=== PATIENT | female | born 1955 ===

== ENCOUNTER 2025-01-02 11:44 | Observation (INO) | payer OTHER ==
[~2025-01-02] VITALS: Ht 162.6 cm; Wt 54.7 kg
--- NOTE | 2025-01-02 12:05 | ERN ---
General Chief Complaint: Nausea,Vomiting,Diarrhea Stated Complaint: NAUSEA Time Seen by MD: 11:49 History of Present Illness Initial Comments 69-year-old female brought in by EMS for vomiting and weakness. According to family and the patient, she has been in her normal state of health. This morning around 7:00 a.m., proximally 5 hours prior to arrival, she has been feeling weak she began vomiting. She has had 7+ episodes of non biliary nonbloody vomit. No diarrhea. She was report generalized weakness. EMS found her to be tachycardic heart rate 110, blood pressure and other vital signs are all stable. Blood glucose 203. Patient was given 4 mg of Zofran IV by the paramedics prior to arrival. Medical history: Hypothyroidism hypertension Surgical history: Hysterectomy Allergies: Coded Allergies: No Known Drug Allergies (Unverified Allergy, Unknown, 01/02/25) Home Meds Reported Medications Atorvastatin Calcium (LIPITOR) 20 Mg Tab, 20 MG PO DAILY, TAB 01/02/25 Famotidine (Famotidine) 40 Mg Tablet, 40 MG PO DAILY, TAB 01/02/25 Celecoxib (Celebrex 200Mg Cap) 200 Mg Cap, 200 MG PO DAILY, CAP 01/02/25 Levothyroxine Sodium (Levothyroxine) 88 Mcg Capsule, 88 MCG PO DAILY, CAP 01/02/25 Past Medical History Past Medical History: High Cholesterol, Hypertension, Hypothyroid Past Surgical History: None ROS Dictation CONSTITUTIONAL: Generalized weakness and fatigue EENT: No eye pain, no blurred vision, no tearing, no double vision, no ear pain, no ear discharge, no nose pain, no nasal congestion, no throat pain, no throat swelling, no mouth pain. RESPIRATORY: No cough, no orthopnea, no SOB, no stridor, no wheezing. CARDIOVASCULAR: No chest pain, no edema, no palpitations, no syncope. GASTROINTESTINAL/ABDOMINAL: Nausea and vomiting GENITOURINARY: No abnormal discharge, no dysuria, no frequent urination, no hematuria. No complaints of pain in the genitals. MUSCULOSKELETAL: No back pain, no gout, no joint pain, no joint swelling, no muscle pain, no muscle stiffness, no neck pain. INTEGUMENTARY: No change in color, no change in hair/nails, no dryness, no lesion, no lumps, no rash. NEUROLOGICAL/PSYCH: No anxiety, not depressed, no emotional problem, no headache, no numbness, no pre-existing deficit, no history of seizures, no tremors, no weakness. HEMATOLOGIC/LYMPHATIC: Not anemic, no history of blood clots, no apparent bleeding, no bruising, glands not swollen. All Systems Negative, Except as Noted. Physical Exam Physical Exam Dictation VITAL SIGNS: Reviewed. GENERAL APPEARANCE: Alert, oriented x3, week HEAD AND FACE: Non-traumatic. EYES: PERRL, pink conjunctivas, eyelid no trauma, anterior chamber clear. EARS: Pinnas intact and no signs of trauma or erythema. Ear canals clear and no discharge. TMs no erythema. NOSE: No discharge, no bleeding. OROPHARYNX: Mouth normal, teeth no caries, tongue pink. Pharynx clear, no erythema. Tonsils no exudates, no abscesses noted. Mucous membrane moist. NECK: Supple, non-tender, no thyromegaly, no masses, no JVD, no bruits. BREAST: Deferred. CHEST: No tenderness, no crepitus, no paradoxical movement, no retractions. LUNGS: Clear, well-ventilated, symmetric, no rales, no wheezing, no rhonchi, no stridor, good breath sounds bilaterally. HEART: Regular rate, regular rhythm, no murmur, no gallops. VASCULAR: No peripheral edema. ABDOMEN: Soft, positive bowel sounds, nondistended, no guarding, nontender, no rebound, no masses no hepatomegaly, no splenomegaly, no Cortez's sign, no hernias. RECTAL: Deferred. GENITAL: Deferred. NEUROLOGICAL: Normal speech, gross motor function intact, gross sensory f unction intact. MUSCULOSKELETAL: Neck nontender, full range of motion, back nontender, full range of motion. EXTREMITIES: Nontender, full range of motion. SKIN: Color pink, dry, no turgor, no rash, no lacerations, no abrasions, no contusions. LYMPHATICS: Deferred. Results Laboratory and Microbiology Lab and Micro Result Laboratory Tests Test 01/02/25 12:00 01/02/25 12:20 01/02/25 14:30 Total Creatine Kinase 100 U/L (21-232) C-Reactive Protein, Quantitative 0.60 mg/L (0.5-3.0) Procalcitonin < 0.05 ng/mL (0.05-0.5) L < 0.05 ng/mL (0.05-0.5) L Thyroid Stimulating Hormone (TSH) 1.36 uIU/mL (0.36-3.74) White Blood Count 14.3 K/uL (4.8-10.8) H Red Blood Count 4.80 MIL/uL (4.00-5.50) Hemoglobin 14.8 g/dL (12.0-16.0) Hematocrit 41.8 % (36-48) Mean Corpuscular Volume 87.1 fL (79-99) Mean Corpuscular Hemoglobin 30.8 pg (27.0-33.0) Mean Corpuscular Hemoglobin Concent 35.4 g/dL (32.0-36.0) Red Cell Distribution Width 12.2 % (11.0-15.5) Platelet Count 267 K/uL (130-400) Mean Platelet Volume 9.0 fL (7.5-10.5) Immature Granulocyte % (Auto) 0.4 % (0-1) Neutrophils (%) (Auto) 92.2 % (40.0-77.0) H Lymphocytes (%) (Auto) 5.1 % (21.0-51.0) L Monocytes (%) (Auto) 2.2 % (3.0-13.0) L Eosinophils (%) (Auto) 0.0 % (0.0-8.0) Basophils (%) (Auto) 0.1 % (0.0-5.0) Neutrophils # (Auto) 13.1 K/uL (1.8-7.7) H Lymphocytes # (Auto) 0.7 K/uL (1.0-4.8) L Monocytes # (Auto) 0.3 K/uL (0.1-1.0) Eosinophils # (Auto) 0.00 K/uL (0.00-0.70) Basophils # (Auto) 0.02 K/uL (0.00-0.20) Absolute Immature Granulocyte (auto 0.05 K/uL (0-1) Nucleated Red Blood Cells 0.0 % (0.0-0.19) White Cell Morphology Comment See comments Sodium Level 142 mmol/L (136-145) Potassium Level 3.7 mmol/L (3.5-5.1) Chloride Level 105 mmol/L (101-111) Carbon Dioxide Level 29 mmol/L (21-32) Blood Urea Nitrogen 15 mg/dL (7-18) Creatinine 0.9 mg/dL (0.5-1.0) Glomerular Filtration Rate Calc 69 mL/min (>90) Random Glucose 144 mg/dL (70-105) H Lactic Acid Level 2.8 mmol/L (0.8-2.5) H Total Calcium 9.7 mg/dL (8.5-10.1) Total Bilirubin 0.5 mg/dL (0.2-1.0) Direct Bilirubin 0.1 mg/dL (0.0-0.3) Aspartate Amino Transf (AST/SGOT) 20 U/L (10-37) Alanine Aminotransferase (ALT/SGPT) 27 U/L (12-78) Alkaline Phosphatase 79 U/L (50-136) Troponin I High Sensitivity 5 ng/L (4-50) Total Protein 7.3 g/dL (6.0-8.3) Albumin 4.0 g/dL (3.5-5.0) Lipase 45 U/L (16-77) Influenza Type A Antigen Negative For Type A Influenza Type B Antigen Negative For Type B SARS-CoV-2 Antigen (Rapid) PRESUMPTIVE NEGATIVE Group A Streptococcus Rapid POSITIVE (NEGATIVE) *A MDM CC: Generalized weakness and vomiting. Historian: Patient Comorbidities: Hypertension, hypothyroidism Limitations by social determinants of health: None Differential diagnosis: Gastroenteritis, dehydration, electrolyte abnormality, ACS, SIRS, sepsis, other. EKG (independently interpreted by me ): Sinus tachycardia rate of 105 normal axis good R-wave progression intervals are stable. No STEMI. Labs (independently ordered and interpreted by me): Leukocytosis 14.3 K, left shift 92% neutrophils. No bands. Metabolic panel shows stable electrolytes. The glucose stable. Lactic acid is 2.8 and elevated. Liver enzymes are all normal, troponin normal, CK normal, CRP normal. Lipase normal. Procalcitonin normal. Thyroid normal. Flu SARS negative. CT head without contrast (independently interpreted by me ): No acute bleeding. Chest x-ray ( independently interpreted by me ): No cardiomegaly, focal infiltrates, pleural effusions. CT abdomen and pelvis without contrast (independently interpreted by me ): No acute abnormalities. No free air. No surgical pathology. No signs of gastritis or enteritis. No signs of obstruction. Patient received 2 L lactated Ringer's, 4 mg of IV Zofran here in the ER. Patient initially had stable vital signs, on re-evaluation she did spike a fever. This gives her fever, tachycardia, and an elevated lactic acid consistent with sepsis. She received another L of fluids. She had over 30 cc/kg of fluids, she also received a dose of IV Rocephin. On sepsis focused re-evaluation after the fluids and the Rocephin, patient has stable perfusion with cap refill less than 2 seconds. Stable vital signs. Plan: We will admit for dehydration, sepsis, vomiting. Patient agrees with the plan. Consultation: Hospitalist. ED Course Orders Procedure Category Date Status Time Cbc With Differential LAB 01/02/25 Complete 11:56 Comprehensive LAB 01/02/25 Complete Metabolic Panel 11:56 Troponin I High LAB 01/02/25 Complete Sensitivity 11:56 Urinalysis Profile LAB 01/02/25 Logged 11:56 12 Lead Ekg Tracing- EKG 01/02/25 Complete Technical 11:56 Lactated Ringers PHA 01/02/25 Complete 1000ml (Lactated 12:00 Ondansetron 4mg Inj PHA 01/02/25 Complete (Zofran 4mg Inj) 12:00 Ct Abdomen/Pelvis W/O CT 01/02/25 Resulted Contrast 11:56 Chest 1vw RAD 01/02/25 Resulted 11:56 Lipase LAB 01/02/25 Complete 11:56 Basic Metabolic Panel LAB 01/02/25 Complete 11:56 Lactic Acid LAB 01/02/25 Complete 11:56 Blood Cult RICKY 01/02/25 In Process 11:56 Hepatic Function Panel LAB 01/02/25 Complete 11:56 Procalcitonin LAB 01/02/25 Complete 11:56 Ct Head/Brain W/O CT 01/02/25 Resulted Contrast 11:56 Ceftriaxone 1g Vial PHA 01/02/25 Complete (Rocephine 1g Inj) 14:30 Covid19 (Sars Antigen LAB 01/02/25 Complete Rapid) 14:25 Influenza Type A & B, LAB 01/02/25 Complete Rapid 14:25 Acetaminophen 500mg PHA 01/02/25 Complete Tab (Tylenol 500mg T 14:25 *Nursing CPOE 01/02/25 Transmitted Communication: 14:49 Lactated Ringers PHA 01/02/25 Complete 1000ml (Lactated 15:00 Rapid (Group A Strep) LAB 01/02/25 Complete 14:25 Vital Signs(Adult CPOE 01/02/25 Transmitted Hospitalist) 15:10 Nurse To Enter Home CPOE 01/02/25 Transmitted Medication 15:10 Admit Orders ADM 01/02/25 Transmitted 15:10 Telemetry Monitoring CPOE 01/02/25 Transmitted 15:10 Gi Soft/[place] Diet DIET 01/02/25 Transmitted Dinner Enoxaparin Sodium 30 PHA 01/03/25 In Process Mg/0.3 Ml (Lovenox) 09:00 Famotidine 20mg Vial PHA 01/02/25 In Process (Pepcid 20mg Vial) 21:00 *Nursing CPOE 01/02/25 Transmitted Communication: 15:10 Zosyn 3.375gm+Ns 50ml PHA 01/02/25 In Process (Zosyn 3.375gm+Ns 15:30 0.9%Nacl 50ml (Ns PHA 01/02/25 In Process 50ml) 15:30 0.9%Nacl 1000ml (Ns PHA 01/02/25 In Process 1000ml) 15:30 Thyroid Stimulating LAB 01/02/25 Complete Hormone 15:10 Hemoglobin A1c LAB 01/02/25 In Process 15:10 Procalcitonin LAB 01/02/25 Complete 15:10 Crp Quantitative LAB 01/02/25 Complete 15:10 Acetaminophen 500mg PHA 01/02/25 In Process Tab (Tylenol 500mg T 15:30 Ondansetron 4mg Inj PHA 01/02/25 In Process (Zofran 4mg Inj) 15:30 Infectious Disease CONPHYSVC 01/02/25 Transmitted Consult 15:10 Us Abdominal Ruq\Ltd US 01/02/25 Logged 15:10 Doxycycline 100mg+Ns PHA 01/02/25 Complete 250ml (Doxycycline 15:30 Creatine Kinase, Total LAB 01/02/25 Complete 12:00 Lactic Acid (Removed) LAB 01/02/25 Logged 15:59 Current Medications Medications (Trade) Dose Ordered Sig/William Route PRN Reason Start Time Stop Time Status Last Admin Dose Admin Acetaminophen (TYLenol 500MG TAB) 500 mg Q6H PRN PO MILD PAIN (1-3) 01/02/25 15:30 02/01/25 15:29 Acetaminophen (TYLenol 500MG TAB) 500 mg STK-MED ONCE .ROUTE 01/02/25 14:25 01/02/25 14:25 DC 01/02/25 14:43 Ceftriaxone Sodium (ROCEphine 1G INJ) 1 gm ONCE ONCE IVPB 01/02/25 14:30 01/02/25 14:31 DC 01/02/25 14:44 Doxycycline Hyclate 250 ml @ 125 mls/hr Q12H IV 01/02/25 15:30 01/02/25 15:31 DC Enoxaparin Sodium (Lovenox) 30 mg DAILY SQ 01/03/25 09:00 02/02/25 08:59 Famotidine (Pepcid 20mg Vial) 20 mg BID IV 01/02/25 21:00 02/01/25 20:59 Lactated Ringer's 1,000 ml @ 0 mls/hr ONCE ONCE IV 01/02/25 12:00 01/02/25 12:01 DC 01/02/25 12:32 Lactated Ringer's (Lactated Ringers 1000ml) 1,000 ml ONCE ONCE IV 01/02/25 15:00 01/02/25 15:03 DC 01/02/25 15:53 Ondansetron HCl (zoFRAN 4MG INJ) 4 mg ONCE ONCE IVP 01/02/25 12:00 01/02/25 12:01 DC 01/02/25 12:32 Ondansetron HCl (zoFRAN 4MG INJ) 4 mg Q6H PRN IVP NAUSEA/VOMITING 01/02/25 15:30 02/01/25 15:29 Piperacillin Sod/ Tazobactam Sod (Zosyn 3.375gm+NS 50ml) 3.375 gm Q8H IVPB 01/02/25 15:30 01/12/25 15:29 Sodium Chloride 1,000 ml @ 125 mls/hr Q8H IV 01/02/25 15:30 02/01/25 15:29 Sodium Chloride (NS 50ml) 50 ml AD IV 01/02/25 15:30 02/01/25 15:29 Vital Signs Date Time Temp Pulse Resp B/P (MAP) Pulse Ox O2 Delivery O2 Flow Rate FiO2 01/02/25 14:43 102.6 01/02/25 14:25 102.6 110 16 149/85 96 Room Air* 0 21 01/02/25 11:49 98.2 105 16 151/88 96 Room Air 0 01/02/25 11:49 98.2 105 16 151/88 96 Room Air* 0 21 DX & DISP Disposition: Inpatient Departure Impression: Primary Impression: Sepsis Additional Impression: Vomiting Critical Time: 30 minutes (Critical Care Procedure NoteAuthorized and Performed by: meTotal critical care time: Approximately 36 minutesDue to a high probability of clinically significant, life threatening deterioration, the patient required my highest level of preparedness to intervene emergently and I personally spent this critical care time directly and personally managing the patient. This critical care time included obtaining a history; examining the patient; pulse oximetry; ordering and review of studies; arranging urgent treatment with development of a management plan; evaluation of patient's response to treatment; frequent reassessment; and, discussions with other providers.This critical care time was performed to assess and manage the high probability of imminent, life-threatening deterioration that could result in multi-organ failure. It was exclusive of separately billable procedures and treating other patients and teaching time.Please see MDM section and the rest of the note for further information on patient assessment and treatment.) Condition: Stable MERCEDES MAY DO Jan 02, 2025 12:05
[2025-01-02] MEDS: LACTATED RINGERS 1000ML 1,000 ML IV ONE (12:32)
[2025-01-02] MEDS: ondanSETRON 4MG INJ IVP ONE (12:32)
--- NOTE | 2025-01-02 12:47 | EKG ---
[facility] Test Date: 2025-01-02 Test Time: 12:24:11 Pat Name: RUKHSANA PIERCE Department: ED Room: 226 Gender: F Cloth Tearer: [id number] : 1955 Requested By: MERCEDES MAY Order Number: [id number] Reading MD: Neena Lugo Measurements Intervals [place] Rate: 105 P: 68 ID: [id number] QRS: 84 QRSD: 91 T: 69 QT: 343 QTc: 454 Interpretive Statements Sinus tachycardia No previous ECG available for comparison Electronically Signed On 01-03-2025 08:45:48 COPYRIGHT EXPERT by Neena Lugo Please click the below link to view image of tracing.
[2025-01-02 13:00] LABS: BASOPHILS # (AUTO) 0.02 K/uL (0.00-0.20); BASOPHILS % (AUTO) 0.1 % (0.0-5.0); HEMATOCRIT 41.8 % (36-48); IMMATURE GRANULOCYTE ABSOLUTE 0.05 K/uL (0-1); LYMPHOCYTES # (AUTO) 0.7 K/uL (1.0-4.8); LYMPHOCYTES % (AUTO) 5.1 % (21.0-51.0); MEAN CORPUSCULAR HEMOGLOBIN 30.8 pg (27.0-33.0); MEAN CORPUSCULAR HGB CONC 35.4 g/dL (32.0-36.0); MEAN CORPUSCULAR VOLUME 87.1 fL (79-99); MONOCYTES # (AUTO) 0.3 K/uL (0.1-1.0); MONOCYTES % (AUTO) 2.2 % (3.0-13.0); NEUTROPHILS # (AUTO) 13.1 K/uL (1.8-7.7); NEUTROPHILS % (AUTO) 92.2 % (40.0-77.0); PLATELET COUNT (AUTO) 267 K/uL (130-400); RED CELL DISTRIBUTION WIDTH 12.2 % (11.0-15.5); WHITE BLOOD COUNT (AUTO) 14.3 K/uL (4.8-10.8)
--- NOTE | 2025-01-02 13:00 | HMCIMG ---
CHEST 1VW HISTORY: Vomiting COMPARISON: None FINDINGS: A frontal projection of the chest was obtained. Prominent interstitial markings are seen with possible superimposed infiltrates. The heart is borderline enlarged. Degenerative changes are seen. No evidence of aortic calcification is seen. IMPRESSION: 1. Prominent interstitial markings are seen with possible superimposed infiltrates.
[2025-01-02 13:03] LABS: CREATININE 0.9 mg/dL (0.5-1.0); POTASSIUM 3.7 mmol/L (3.5-5.1)
[2025-01-02 13:08] LABS: BILIRUBIN,DIRECT 0.1 mg/dL (0.0-0.3); BILIRUBIN,TOTAL 0.5 mg/dL (0.2-1.0); TOTAL PROTEIN, SERUM 7.3 g/dL (6.0-8.3)
--- NOTE | 2025-01-02 13:12 | HMCIMG ---
CT HEAD/BRAIN W/O CONTRAST HISTORY: Altered mental status COMPARISON: None TECHNIQUE: Multiple sequential axial images of the head were obtained from the base of the skull through vertex. Patient was not given contrast through intravenous route. FINDINGS: The ventricles and extraventricular CSF spaces are dilated consistent with cerebral atrophy. Nonspecific white matter changes seen. There is no midline shift, mass effect or herniation. No acute intracranial bleed is seen. Visualized portion of the paranasal sinuses are grossly within normal limits. IMPRESSION: 1. No acute intracranial bleed is seen. 2. Atrophy with white matter changes. CT was performed with one or more following dose reduction techniques: automated exposure control, adjustment of the mA and kv according to patient's size, or use of a iterative reconstruction technique.
--- NOTE | 2025-01-02 13:13 | HMCIMG ---
CT ABDOMEN/PELVIS W/O CONTRAST HISTORY: Abdominal pain COMPARISON: None TECHNIQUE: Multiple sequential axial images of the abdomen and pelvis were obtained from the dome of the diaphragm through symphysis pubis. Patient was not given contrast through intravenous route. Oral contrast was not given. FINDINGS: No pleural effusion is seen bilaterally. There is no evidence of parenchymal disease or pulmonary nodule of the visualized lower lungs. Degenerative changes of the thoracolumbar spine are present. The heart is not enlarged. There are motion artifacts degrading the image quality. The liver, spleen, adrenal glands and pancreas are unremarkable. There is no evidence of hydronephrosis bilaterally. No evidence of renal stone is seen. Fecal material is seen in the colon. There are normal size retroperitoneal and mesenteric lymph nodes. No ascites is seen. Atherosclerotic changes are present. Pelvic sidewalls are symmetric bilaterally. Bladder is well distended without wall thickening. IMPRESSION: 1. No acute findings. CT was performed with one or more following dose reduction techniques: automated exposure control, adjustment of the mA and kv according to patient's size, or use of a iterative reconstruction technique.
[2025-01-02 14:43] VITALS: TEMP 102.6
[2025-01-02] MEDS: acetaMINOPHEN 500 MG TABLET ONE (14:43)
[2025-01-02] MEDS: cefTRIAXone 1G VIAL IVPB ONE (14:44)
[2025-01-02 15:14] LABS: COVID19 (SARS ANTIGEN RAPID) PRESUMPTIVE NEGATIVE (NEGATIVE)
[2025-01-02 15:15] LABS: INFLUENZA TYPE A Negative For Type A (NEGATIVE); INFLUENZA TYPE B Negative For Type B (NEGATIVE)
--- NOTE | 2025-01-02 15:18 | HP ---
[facility] HISTORY AND PHYSICAL Date of Service: Jan 02, 2025 Time of Service: 15:18 HISTORY OF PRESENT ILLNESS: 69-year-old female with past medical history of hypertension, hyperlipidemia who presented to the hospital nausea, vomiting, generalized weakness. The patient states she was in normal state of health yesterday. Around morning she noted she was feeling weak and had episodes of vomiting. She had around 7+ episodes of non biliary vomit. No diarrhea was noted. She has been urinating well and denies any dysuria. Denied any chest pain, shortness of breath, abdominal pain. Complained of mild headache but denied any neck pain, nuchal rigidity. Denied any recent travel, sick contacts at home. Per daughter patient had eaten pork which was cooked. She denies eating any uncooked meat or eating any contaminated food. Denied any new onset rash, insect bite. Labs in the ED were notable for white count of 14.3, hemoglobin was 14.8, platelet count was 267k, sodium was 142, potassium was 3.7, creatinine was 0.9, blood glucose was 144, lactic acid was 2.8, LFTs were unremarkable, Chest x-ray showed no acute infiltrates. Patient underwent a CT abdomen pelvis which showed no acute findings. CT head was showing no intracranial. REVIEW OF SYSTEMS CONSTITUTIONAL: Denies fevers, chills, or night sweats. No unintentional weight loss reported. NEUROLOGICAL: Denies headache, amaurosis fugax, motor weakness, sensory deficit, vertigo/spinning sensation, gait abnormalities, or tremors. ENT: No hearing loss, otalgia, otorrhea, rhinitis, rhinorrhea, hoarseness, or sore throat. CARDIOVASCULAR: Denies any exertional angina, dyspnea on exertion, orthopnea, paroxysmal nocturnal dyspnea, palpitations, life-threatening arrhythmias, claudication. PULMONARY: Denies any shortness of breath, hemoptysis, pleuritic chest pain. Positive for cough GASTROINTESTINAL: Positive for nausea, vomiting. Denied any diarrhea, constipation, abdominal pain, melena, hematochezia, hematemesis GENITOURINARY: Denies frequency, urgency, nocturia, hematuria or incontinence (Storage/Irritative symptoms.) Low urinary stream, straining to void, urinary intermittency or hesitancy, splitting of the voiding stream, terminal dribbling. ENDOCRINOLOGIC: Denies polyuria, polydipsia, polyphagia or heat/cold intolerances. HEMATOLOGIC: Denies thrombophilia/previous clots, or coagulopathy/bleeding disorders. ONCOLOGIC: Denies personal history of malignancy. DERMATOLOGIC: Denies rashes or pruritus. PSYCHIATRIC: Denies any suicidal or homicidal ideation. Denies hallucinations. PAST MEDICAL HISTORY: Hypertension, hyperlipidemia PAST SURGICAL HISTORY: Denied any surgical history PAST SOCIAL HISTORY: Denied any smoking, alcohol FAMILY HISTORY: Denied any pertinent family history Coded Allergies: No Known Drug Allergies (Unverified Allergy, Unknown, 01/02/25) PHYSICAL EXAM GENERAL APPEARANCE: The patient is awake, alert, and oriented, in no acute cardiopulmonary distress. NEUROLOGICAL: Cranial nerves II-XII grossly intact. Motor is 5/5 in bilateral upper and lower extremities proximal to distal. No sensory deficits. HEENT: Face is symmetric. Pupils are equal and reactive. Extraocular movements are intact. NECK: Supple. No JVD. No thyromegaly. No submental, submandibular, pre- /postauricular, occipital or supraclavicular lymphadenopathy. CHEST: Normal chest expansion. No Telemetry. LUNGS: Absence of any rales, rhonchi or any wheezing. CARDIOVASCULAR: Regular. S1 and S2 normal. No appreciable rubs, murmurs or gallops. ABDOMEN: Soft, nontender, and nondistended. There is no rebound, voluntary guarding, or rigidity. : Deferred. No Velazquez. EXTREMITIES: Non-edematous and not cyanotic. No clubbing. Good capillary refill. SKIN: No skin breakdown. Vital Sign (Last 24 Hours) 01/02/25 01/02/25 14:25 14:43 Temp 102.6 Pulse 110 Resp 16 B/P (MAP) 149/85 Pulse Ox 96 O2 Delivery Room Air* O2 Flow Rate 0 FiO2 21 LABS: Laboratory: Test 01/02/25 14:30 01/02/25 12:20 Range/Units Influenza Type A Antigen Negative For Type A NEGATIVE Influenza Type B Antigen Negative For Type B NEGATIVE SARS-CoV-2 Antigen (Rapid) PRESUMPTIVE NEGATIVE NEGATIVE Group A Streptococcus Rapid POSITIVE *A NEGATIVE White Blood Count 14.3 H 4.8-10.8 K/uL Red Blood Count 4.80 4.00-5.50 MIL/uL Hemoglobin 14.8 12.0-16.0 g/dL Hematocrit 41.8 36-48 % Mean Corpuscular Volume 87.1 79-99 fL Mean Corpuscular Hemoglobin 30.8 27.0-33.0 pg Mean Corpuscular Hemoglobin Concent 35.4 32.0-36.0 g/dL Red Cell Distribution Width 12.2 11.0-15.5 % Platelet Count 267 130-400 K/uL Mean Platelet Volume 9.0 7.5-10.5 fL Immature Granulocyte % (Auto) 0.4 0-1 % Neutrophils (%) (Auto) 92.2 H 40.0-77.0 % Lymphocytes (%) (Auto) 5.1 L 21.0-51.0 % Monocytes (%) (Auto) 2.2 L 3.0-13.0 % Eosinophils (%) (Auto) 0.0 0.0-8.0 % Basophils (%) (Auto) 0.1 0.0-5.0 % Neutrophils # (Auto) 13.1 H 1.8-7.7 K/uL Lymphocytes # (Auto) 0.7 L 1.0-4.8 K/uL Monocytes # (Auto) 0.3 0.1-1.0 K/uL Eosinophils # (Auto) 0.00 0.00-0.70 K/uL Basophils # (Auto) 0.02 0.00-0.20 K/uL Absolute Immature Granulocyte (auto 0.05 0-1 K/uL Nucleated Red Blood Cells 0.0 0.0-0.19 % White Cell Morphology Comment See comments Sodium Level 142 136-145 mmol/L Potassium Level 3.7 3.5-5.1 mmol/L Chloride Level 105 101-111 mmol/L Carbon Dioxide Level 29 21-32 mmol/L Blood Urea Nitrogen 15 7-18 mg/dL Creatinine 0.9 0.5-1.0 mg/dL Glomerular Filtration Rate Calc 69 >90 mL/min Random Glucose 144 H 70-105 mg/dL Lactic Acid Level 2.8 H 0.8-2.5 mmol/L Total Calcium 9.7 8.5-10.1 mg/dL Total Bilirubin 0.5 0.2-1.0 mg/dL Direct Bilirubin 0.1 0.0-0.3 mg/dL Aspartate Amino Transf (AST/SGOT) 20 10-37 U/L Alanine Aminotransferase (ALT/SGPT) 27 12-78 U/L Alkaline Phosphatase 79 50-136 U/L Troponin I High Sensitivity 5 4-50 ng/L Total Protein 7.3 6.0-8.3 g/dL Albumin 4.0 3.5-5.0 g/dL Lipase 45 16-77 U/L Procalcitonin < 0.05 L 0.05-0.5 ng/mL DIAGNOSTICS / RADIOLOGY: [ ] ASSESSMENT: Sepsis unclear source POA Positive strep throat Possible gastroenteritis Hypertension Hyperlipidemia PLAN: - patient to be admitted to [facility] -in reference to sepsis. Patient will be started on Zosyn. We will obtain UA and urine culture, blood culture. Patient denies any sick contacts or recent travel. We will also start patient on doxycycline. We will request consultation with Infectious Disease. Closely monitor patient -start patient on normal saline for gentle hydration -check procaine, CRP, TSH, A1c -obtain home medications which will be reconciled once available -further orders per hospitalization course Advanced Care Planning Which of the following were discussed: Hospice care: Yes __ No _x_ Therapeutic options: Yes __ No __ Advance directives: Yes __ No __ Other discussions: Pt is full code Discussed with who?: patient (Patient, family or surrogates) Voluntary nature of this service was explained to the patient? Yes _x_ No __ Amount of time spent: 25 minutes LANDY Freitas MD, MD Jan 02, 2025 15:18
[2025-01-02] MEDS ORDERED: ATOR10 PO (15:26)
[2025-01-02] MEDS ORDERED: LEVO88CA4 PO (15:26)
[2025-01-02] MEDS ORDERED: FAMO40TA7 PO (15:26)
[2025-01-02] MEDS ORDERED: CELE200 PO (15:26)
[2025-01-02] MEDS ORDERED: acetaMINOPHEN 500 MG TABLET PO PRN (15:30)
[2025-01-02] MEDS ORDERED: ondanSETRON 4MG INJ IVP PRN (15:30)
[2025-01-02] MEDS ORDERED: 0.9%NACL 50ML IV SCH (15:30)
[2025-01-02] MEDS ORDERED: DOXYCYCLINE 100MG+NS 250ML 250 ML IV SCH (15:30)
[2025-01-02] MEDS: LACTATED RINGERS 1000ML IV ONE (15:53)
[2025-01-02 16:02] LABS: THYROID STIMULATING HORMONE 1.36 uIU/mL (0.36-3.74)
[2025-01-02 16:35] LABS: HEMOGLOBIN A1C 5.3 % (4.0-6.0)
[2025-01-02 17:05] LABS: APPEARANCE,URINE CLEAR (CLEAR); BILIRUBIN,URINE NEGATIVE (NEGATIVE); COLOR,URINE LIGHT-YELLOW (YELLOW); GLUCOSE, URINE (UA) NEGATIVE (NEGATIVE); KETONES,URINE NEGATIVE (NEGATIVE); LEUKOCYTE ESTERASE ,URINE NEGATIVE Leu/uL (NEGATIVE); NITRATE,URINE NEGATIVE (NEGATIVE); PH,URINE 6.5 (5.0-8.0); PROTEIN,URINE 600 mg/dL (NEGATIVE); UROBILINOGEN,URINE 0.2 mg/dL (0.2-1.0)
[2025-01-02] MEDS: 0.9%NACL 1000ML 1,000 ML IV SCH ×2 (17:06→22:13)
[2025-01-02] MEDS: ZOSYN 3.375GM +NS 50ML IVPB SCH (17:06)
[2025-01-02 17:07] LABS: ADD UA MICROSCOPIC YES; BACTERIA,URINE RARE /HPF (None Seen); MUCUS,URINE RARE LPF (None Seen); SQUAMOUS EPITHELIAL CELL,UR RARE /HPF (0-2)
[2025-01-02 18:00] VITALS: BP 166/77; PULSE 124; RESP 20; TEMP 100.3
[2025-01-02 18:30] VITALS: O2SAT 96
--- NOTE | 2025-01-02 18:38 | NUR ---
1800: RECEIVED PATIENT FROM ER VIA STRETCHER. CURRENTLY DENIES PAIN OR NAUSEA. ORAL TEMP 100.3. INFUSING NS AT 125 CC/HR. NPO PENDING US ABDOMEN THIS EVENING. TELEMETRY READING ST HR 112. WILL CONTINUE TO MONITOR.
--- NOTE | 2025-01-02 18:51 | HMCIMG ---
ULTRASOUND ABDOMEN LIMITED INDICATION: Right upper abdominal pain COMPARISON: None FINDINGS: The liver is normal in size and echogenicity; no focal lesion demonstrated. The common bile duct diameter measures 3.0 mm. No evidence for calculi, sludge or pericholecystic fluid. No sonographic Cortez's sign elicited by the ultrasound brush operator. Wall thickness measures 2.0 mm. Visible portions of the pancreas appear normal. The right kidney measures 9.6 x 6.4 x 5.0 cm,and is normal in echogenicity, without evidence for hydronephrosis.No shadowing stones demonstrated. Extrarenal pelvis demonstrated. No free fluid demonstrated. IMPRESSION: No acute right upper abdominal abnormality noted.
[2025-01-02 19:00] VITALS: BP 147/91; PULSE 114; RESP 18; TEMP 98.6
[2025-01-02] MEDS ORDERED: hydrALAZine 20MG/ML VIAL IV PRN (19:00)
[2025-01-02] MEDS: DOXYCYCLINE 100MG+NS 250ML 250 ML IV SCH (20:31)
[2025-01-02] MEDS: FAMOTIDINE 20MG VIAL IV SCH (20:32)
[2025-01-02 21:00] VITALS: O2SAT 97
--- NOTE | 2025-01-02 21:40 | NUR ---
Lactic acid increase: 2.8 to 3.1. Notified Luisa ASSOCIATE PASTOR. Fluids and vitals reviewed. Order received for 0.9 NS @ 200 x 5 hrs. Recheck lactic acid in AM.
[2025-01-02 23:00] VITALS: BP 126/74; PULSE 107; RESP 18; TEMP 98.4
[2025-01-03 03:00] VITALS: BP 130/83; PULSE 98; RESP 18; TEMP 98
[2025-01-03] MEDS: levoTHYROxine 88 MCG TABLET PO SCH (06:34)
[2025-01-03 06:51] LABS: BASOPHILS # (AUTO) 0.02 K/uL (0.00-0.20); BASOPHILS % (AUTO) 0.2 % (0.0-5.0); EOSINOPHILS # (AUTO) 0.01 K/uL (0.00-0.70); EOSINOPHILS % (AUTO) 0.1 % (0.0-8.0); HEMATOCRIT 31.4 % (36-48); IMMATURE GRANULOCYTE ABSOLUTE 0.03 K/uL (0-1); LYMPHOCYTES # (AUTO) 1.7 K/uL (1.0-4.8); LYMPHOCYTES % (AUTO) 19.7 % (21.0-51.0); MEAN CORPUSCULAR HGB CONC 34.7 g/dL (32.0-36.0); MEAN CORPUSCULAR VOLUME 89.2 fL (79-99); MONOCYTES # (AUTO) 0.8 K/uL (0.1-1.0); MONOCYTES % (AUTO) 9.1 % (3.0-13.0); NEUTROPHILS % (AUTO) 70.5 % (40.0-77.0); PLATELET COUNT (AUTO) 180 K/uL (130-400); RED BLOOD CELL COUNT(AUTO) 3.52 MIL/uL (4.00-5.50); RED CELL DISTRIBUTION WIDTH 12.4 % (11.0-15.5); WHITE BLOOD COUNT (AUTO) 8.5 K/uL (4.8-10.8)
[2025-01-03 07:00] VITALS: BP 122/85; PULSE 86; RESP 18; TEMP 97.8
[2025-01-03 07:13] LABS: ALBUMIN 2.6 g/dL (3.5-5.0); BILIRUBIN,TOTAL 0.6 mg/dL (0.2-1.0); CREATININE 0.9 mg/dL (0.5-1.0); POTASSIUM 3.7 mmol/L (3.5-5.1); TOTAL PROTEIN, SERUM 5.1 g/dL (6.0-8.3)
--- NOTE | 2025-01-03 07:31 | CONS ---
INFECTIOUS DISEASE CONSULTATION DATE OF SERVICE: 01/02/2025 REQUESTING PHYSICIAN: Gt Macdonald MD REASON FOR CONSULTATION: Sepsis. HISTORY OF PRESENT ILLNESS: This is a 69-year-old female with history of hypertension, hypothyroidism, osteoporosis, presented to the hospital with fever. The patient also complained of generalized body weakness, nausea and vomiting. The patient's T-max in the emergency room was 102.9. The patient had multiple episodes of vomiting today. No diarrhea. Denied dysuria. No frequency. No cough, no shortness of breath. No palpitation or orthopnea. No bleeding tendency. The patient found with creatinine of 2.8. CT of the abdomen unremarkable. CT head also came back negative. No cough. No hemoptysis. PAST MEDICAL HISTORY: * Hypertension. * Hypothyroidism. * Osteoporosis. * Osteoarthritis. PAST SURGICAL HISTORY: * section. * Tubal ligation. ALLERGIES: No known drug allergy. CURRENT MEDICATIONS: Reviewed. SOCIAL HISTORY: No alcohol, tobacco or illicit drug use. FAMILY HISTORY: Noncontributory. REVIEW OF SYSTEMS: Greater than 10 systems were reviewed, negatives as documented above. PHYSICAL EXAMINATION: GENERAL: Elderly female, awake. VITAL SIGNS: Temperature 100.2, pulse 110, respirations 16, BP 149/85. EYES: No icterus. Pupils equal and reactive. HENT: No oral thrush seen. Moist oral mucosa. NECK: Supple. No JVD or thyromegaly. LUNGS: Good air entry. No rales. No rhonchi. CARDIOVASCULAR SYSTEM: S1, S2 regular. No murmur heard. ABDOMEN: Full, soft. Bowel sounds are present. CENTRAL NERVOUS SYSTEM: Awake, alert, oriented x 3. No focal deficits. SKIN: No rashes, no itchiness. LYMPHATIC: No peripheral lymphadenopathy. BACK: No deformity, no pressure ulcer. LABORATORY DATA: Sodium 142, potassium 3.7, BUN 44, creatinine 2.8. WBC 14.3, hemoglobin 14.8, platelets 267. RADIOLOGY: CT of the abdomen unremarkable. Chest x-ray unremarkable. ASSESSMENT: A 69-year-old female presented with fever. Current problems include: * Sepsis. * Infectious gastroenteritis. * Dehydration. * Acute renal failure. * Hypothyroidism. PLAN: * Continue Zosyn. * Follow up cultures. * Continue IV fluid. * Continue antiemetic. * Continue DVT prophylaxis. * Continue Synthroid. * Monitor electrolytes. * Continue GI prophylaxis. * The patient will be followed up closely. Thank you for allowing me to participate in the care of this patient. TID: [id number] RECEIPT: [id number]
[2025-01-03 08:00] VITALS: O2SAT 96
[2025-01-03] MEDS: atorVAStatin 10 MG TABLET PO SCH (08:38)
[2025-01-03] MEDS: LoSARTan 50 MG TABLET PO SCH (08:38)
[2025-01-03] MEDS: amLODIPine 5 MG TAB PO SCH (08:38)
[2025-01-03] MEDS: ENOXAPARIN SODIUM 30 MG/0.3 ML SQ SCH (08:39)
[2025-01-03] MEDS ORDERED: AMLO5TAB4 PO (08:46)
[2025-01-03 11:00] VITALS: BP 131/87; PULSE 95; RESP 20; TEMP 98.7
[2025-01-03] MEDS ORDERED: AMOX1TAB16 PO (14:24)
--- NOTE | 2025-01-03 14:28 | DS ---
Discharge Summary Hospital Course Summary: 69-year-old female with past medical history of hypertension, hyperlipidemia who presented to the hospital nausea, vomiting, generalized weakness. The patient states she was in normal state of health and in the morning she noted she was feeling weak and had episodes of vomiting. She had around 7+ epis odes of non biliary vomit. No diarrhea was noted. She has been urinating well and denies any dysuria. Denied any chest pain, shortness of breath, abdominal pain. Complained of mild headache but denied any neck pain, nuchal rigidity. Denied any recent travel, sick contacts at home. Per daughter patient had eaten pork which was cooked. She denies eating any uncooked meat or eating any contaminated food. Denied any new onset rash, insect bite. Labs in the ED were notable for white count of 14.3, hemoglobin was 14.8, platelet count was 267k, sodium was 142, potassium was 3.7, creatinine was 0.9, blood glucose was 144, lactic acid was 2.8, LFTs were unremarkable, Chest x-ray showed no acute infiltrates. Patient underwent a CT abdomen pelvis which showed no acute findings. CT head no acute findings. US abdomen no acute findings Serology positive for Group A strep, started IV antibiotics, leukocytosis resolved. Today patient is AO x 3, denies headache, no chest pain, no sob, no cough, would like to go home today. Forklift Mechanic(s): Infectious disease Assessment/Plan: FINAL DIAGNOSIS Sepsis unclear source POA Positive strep A throat Possible gastroenteritis Hypertension Hyperlipidemia Discharge Instructions: Patient to follow up with PCP as outpatient and return to the hospital if c ondition changes. Home Medications: Reported Medications Atorvastatin Calcium (LIPITOR) 20 Mg Tab, 20 MG PO DAILY, TAB 01/02/25 Famotidine (Famotidine) 40 Mg Tablet, 40 MG PO DAILY, TAB 01/02/25 Celecoxib (Celebrex 200Mg Cap) 200 Mg Cap, 200 MG PO DAILY, CAP 01/02/25 Levothyroxine Sodium (Levothyroxine) 88 Mcg Capsule, 88 MCG PO DAILY, CAP 01/02/25 New Medications: Amoxicillin/Potassium Clav (Amox Tr-K Clv 875-125 mg Tab) 875 Mg-125 Mg Tablet 1 TAB PO BID for 7 Days, #14 TAB 0 Refills Amlodipine Besylate (Norvasc 5Mg Tab) 5 Mg Tablet 5 MG PO DAILY for 30 Days, #30 TAB 1 Refill Continued Medications: Atorvastatin Calcium (Lipitor) 20 Mg Tab 20 MG PO DAILY, TAB Celecoxib (Celebrex 200Mg Cap) 200 Mg Cap 200 MG PO DAILY, CAP Famotidine (Famotidine) 40 Mg Tablet 40 MG PO DAILY, TAB Levothyroxine Sodium (Levothyroxine) 88 Mcg Capsule 88 MCG PO DAILY, CAP Time spent arranging discharge: 31-60 minutes CACHORRO IRENE MD Jan 03, 2025 14:28
[2025-01-03 14:46] LABS: HEMATOCRIT 33.7 % (36-48); MEAN CORPUSCULAR HEMOGLOBIN 30.7 pg (27.0-33.0); MEAN CORPUSCULAR HGB CONC 34.1 g/dL (32.0-36.0); MEAN CORPUSCULAR VOLUME 89.9 fL (79-99); RED BLOOD CELL COUNT(AUTO) 3.75 MIL/uL (4.00-5.50); RED CELL DISTRIBUTION WIDTH 12.4 % (11.0-15.5); WHITE BLOOD COUNT (AUTO) 7.6 K/uL (4.8-10.8)
--- NOTE | 2025-01-03 15:14 | NUR ---
1510: GIVEN DISMISSAL INSTRUCTIONS AND SCRIPT TO PATIENT AND HER DAUGHTER,, [place]. BOTH VERBALIZED UNDERSTANDING. REMOVED SALINE LOCK FROM LEFT UPPER ARM AREA, IV SITE WITHOUT REDNESS NOTED. REMOVED TELE PACK. 1514: TAKEN TO PRIVATE CAR ALONG WITH PERSONAL BELONGINGS VIA WHEELCHAIR BY STUDENT NURSEBALWINDER.
--- NOTE | 2025-01-03 21:02 | PN ---
INFECTIOUS DISEASE FOLLOWUP NOTE DATE OF SERVICE: 01/03/2025 SUBJECTIVE: The patient is seen and examined at bedside today. No fever, no chills. No nausea, no vomiting. No sore throat or rhinorrhea. Denied depression or suicidal ideation. Renal failure has resolved. No dysuria, no hematuria. PHYSICAL EXAMINATION: VITAL SIGNS: Temperature 97.2. EYES: No icterus. Pupils equal and reactive. HENT: No oral thrush seen. Moist oral mucosa. NECK: Supple. No JVD or thyromegaly. LUNGS: Good air entry. No rales, no rhonchi. CARDIOVASCULAR: S1, S2 regular. No murmur heard. ABDOMEN: Full, soft, nontender. Bowel sound is present. CENTRAL NERVOUS SYSTEM: Awake, alert, oriented x 3. No focal deficits. SKIN: No rashes, no itchiness. LYMPHATIC: No peripheral lymphadenopathy. BACK: No deformity, no pressure ulcer. HEMATOLOGIC: No bleeding or petechial lesion seen. LABORATORY DATA: WBC 8.5, hemoglobin 10.8, platelet 185. BUN 11, creatinine 0.9. ASSESSMENT: A 69-year-old female presenting with fever CURRENT PROBLEMS: Include: * Sepsis. * Dehydration. * Renal failure which has resolved. * Hypothyroidism. * Streptococcal pharyngitis. PLAN: * Continue antibiotic. * Continue nutritional support. * Continue GI prophylaxis. * Monitor electrolytes. * ____. TID: [id number] [facility]: [id number] [facility]
== END 2025-01-03 15:14 | disposition home or self-care (01) ==
LOC: EDH 11:50 → EDHIP 15:10 → INTOOBSV 15:10 → 2DH 18:00
PROVIDERS: ADMIT Internal Medicine; ATTEND Internal Medicine
DX: A41.9 Sepsis, unspecified organism (principal); Z20.822 Contact with and (suspected) exposure to COVID-19; J02.0 Streptococcal pharyngitis; E86.0 Dehydration; E03.9 Hypothyroidism, unspecified; E78.5 Hyperlipidemia, unspecified; I10 Essential (primary) hypertension; R53.1 Weakness; R11.2 Nausea with vomiting, unspecified; N17.9 Acute kidney failure, unspecified; Z90.710 Acquired absence of both cervix and uterus; Z98.890 Other specified postprocedural states; Z79.899 Other long term (current) drug therapy
CPT/HCPCS: 99291; 96366 ×2; 70450; 96365; 76705; 96375; 71045; 96367; 96361; 87426; 96368; 83036; 84443; 82248; 82550; 84484; 80053 ×2; 83690; 85025 ×2; 87040 ×2; 87880; 87804 ×2; 83605 ×3; 86140; 81001; 36415 ×2; 74176; 93005; 96376; 96372; 85027; 84145 ×2; J3490 ×4; J0696; J2405; J2543 ×3; G0378; J1650; 80076; 96374